=== PATIENT | female | born 1975 | race Caucasian/White ===

== ENCOUNTER 2017-02-10 10:23 | Emergency (ER) | payer MEDICAID ==
[2017-02-10] MEDS ORDERED: Sodium Chloride 0.9% 1,000 ML IV ONE (10:49)
[2017-02-10] MEDS ORDERED: Sodium Chloride 0.9% 1,000 ML ONE (11:18)
[2017-02-10 11:20] LABS: BASO % 0.8 % (0.0-2.0); EOS % 0.6 % (0.0-4.0); HEMATOCRIT 40.6 % (34.0-47.0); LYMPH # 1.5 K/uL (1.0-4.3); LYMPH % 31.1 % (20.0-40.0); MEAN CELL VOLUME 91.4 fL (81.0-99.0); MEAN CORPUSCULAR HEMOGLOBIN 30.6 pg (27.0-31.0); MEAN CORPUSCULAR HGB CONC 33.5 g/dL (33.0-37.0); MEAN PLATELET VOLUME 8.1 fL (7.2-11.7); MONO # 0.4 K/uL (0.0-0.8); RED CELL DISTRIBUTION WIDTH 13.3 % (11.5-14.5); WHITE BLOOD COUNT 4.9 K/uL (4.8-10.8)
[2017-02-10 11:25] LABS: CHLORIDE 102 mmol/L (98-107); SODIUM 145 mmol/L (132-148)
[2017-02-10 11:26] LABS: POTASSIUM 3.3 mmol/L (3.6-5.2)
[2017-02-10 11:28] LABS: ALB/GLOB RATIO 1.4 (1.0-2.1); ALKALINE PHOSPHATASE 44 U/L (38-126); ALT/SGPT 22 U/L (9-52); AST/SGOT 22 U/L (14-36); BILIRUBIN,TOTAL 0.5 mg/dL (0.2-1.3); BLOOD UREA NITROGEN 6 mg/dL (7-17); CARBON DIOXIDE 27 mmol/L (22-30); GFR AFRICAN-AMERICAN > 60; GLUCOSE,RANDOM 86 mg/dL (65-105); TOTAL PROTEIN 8.3 g/dL (6.3-8.3)
[2017-02-10 11:29] LABS: CALCIUM 9.3 mg/dl (8.6-10.4); INR 1.1; URINE BILIRUBIN NEGATIVE (NEGATIVE); URINE BLOOD 2+ (NEGATIVE); URINE COLOR Colorless (YELLOW); URINE GLUCOSE (UA) NORMAL (Normal); URINE KETONE NEGATIVE (NEGATIVE); URINE LEUKOCYTE ESTERASE NEG Leu/uL (Negative); URINE PROTEIN NEGATIVE (NEGATIVE); URINE UROBILINOGEN NORMAL mg/dL (0.2-1.0); WBC URINE < 1 /hpf (0-5)
--- NOTE | 2017-02-10 12:16 | C.PDOC ---
History Of Present Illness 41 y/o female presents to the ED with complaints of spitting up blood, rectal bleeding, weakness and lightheadedness since yesterday. Pt also reports left leg pain and swelling which she states she has had in the past, and it "usually flares up around her menses". Pt denies chest pain, SOB, abdominal pain, nausea, vomiting, diarrhea, dysuria/hematuria. Time Seen by Provider: 02/10/17 10:42 Chief Complaint (Nursing): Abdominal Pain History Per: Patient History/Exam Limitations: no limitations Onset/Duration Of Symptoms: Hrs Current Symptoms Are (Timing): Still Present Severity: Moderate Recent travel outside of the [place]: No Past Medical History Reviewed: Historical Data, Nursing Documentation, Vital Signs Vital Signs: Last Vital Signs Temp 97.9 F 02/10/17 15:34 Pulse 65 02/10/17 15:34 Resp 18 02/10/17 15:34 BP 112/77 02/10/17 15:34 Pulse Ox 100 02/10/17 15:34 - Medical History PMH: Bronchitis - [facility] Procedures MANUAL ASSIST DELIV NEC (10/12/14) Family History: States: No Known Family Hx - Social History Hx Tobacco Use: No Hx Alcohol Use: No Hx Substance Use: No - Immunization History Hx Tetanus Toxoid Vaccination: Yes Hx Influenza Vaccination: No Hx Pneumococcal Vaccination: No Review Of Systems Except As Marked, All Systems Reviewed And Found Negative. Constitutional: Positive for: Weakness. Negative for: Fever Cardiovascular: Negative for: Chest Pain Respiratory: Negative for: Shortness of Breath Gastrointestinal: Positive for: Other (rectal bleeding, spitting up blood). Negative for: Nausea, Vomiting, Abdominal Pain, Diarrhea Genitourinary: Negative for: Dysuria, Hematuria Musculoskeletal: Positive for: Other (left leg pain and swelling) Neurological: Positive for: Other (lightheaded) Physical Exam - Physical Exam Appears: Non-toxic, No Acute Distress, Other (anxious appearing) Skin: Warm, Dry, No Rash Head: Normacephalic Eye(s): bilateral: Normal Inspection Oral Mucosa: Moist Throat: Normal, No Erythema, No Exudate Neck: Normal, Normal ROM Chest: Symmetrical Cardiovascular: Rhythm Regular (tachycardic), No Murmur Respiratory: Normal Breath Sounds, No Rales, No Rhonchi, No Wheezing Gastrointestinal/Abdominal: Bowel Sounds, Soft, Tenderness (diffuse mild tenderness to palpation, greatest in epigastric area), No Guarding, No Rebound Rectal: Rectal Tone (normal), No Hemorrhoids, No Mass, No Tenderness, Other (No gross blood, pink colored stool) Extremity: Normal ROM, Tenderness (diffuse left leg tenderness from thigh and calf), No Deformity, No Swelling, Other (no erythema) Pulses: Left Dorsalis Pedis: Normal, Right Dorsalis Pedis: Normal Neurological/Psych: Oriented x3, Other (bizarre affect) ED Course And Treatment - Laboratory Results Result Diagrams: 02/10/17 11:14 02/10/17 11:14 O2 Sat by Pulse Oximetry: 100 (on room air) Pulse Ox Interpretation: Normal Progress Note: Plan: Blood work, EKG, UA, venous doppler ordered and reviewed. PO Kdur given for mild hypokalemia. Reevaluation Time: 15:15 Reassessment Condition: Improved (Patient reassessed, is resting comfortably, in no current pain/distress. SFOB was (-), patient now admits that she has been drinking a lot of beet juice - likely the cause of pink/red stool. She also now admits that her back pain is chronic, and has been present since she [place] Blood work and venous doppler WNL. Patient well appearing, with normal vitals. On exam, abdomen is soft and nontender. Will discharge home with rx for pain medication, was instructed to follow up with PMD in1 -2 days. She understands she should return to ED if symptoms worsen.) Disposition Counseled Patient/Family Regarding: Studies Performed, Diagnosis, Need For Followup, Rx Given - Disposition Referrals: Natasha Frausto MD [Staff Provider] - Disposition: HOME/ ROUTINE Disposition Time: 15:15 Condition: STABLE Additional Instructions: SEGUIMIENTO CON KOROMA MDICO EN 1-2 VIDAL DEVUELVA A LA MAHOGANY DE EMERGENCIA SI LOS SNTOMAS Prescriptions: Acetaminophen with Codeine [Tylenol with Codeine #3 Tablet] 1 each PO Q6 PRN # 12 tablet PRN Reason: pain Instructions: Chronic Back Pain (ED) Forms: General Discharge Instructions Print Language: BELARUSIAN - POA Present On Arrival: None - Clinical Impression Clinical Impression: Chronic back pain, Hypokalemia, Red stool, Anxiety - Scribe Statement The provider has reviewed the documentation as recorded by the Avelibe Dc Jones Provider Attestation: All medical record entries made by the Avelibe were at my direction and personally dictated by me. I have reviewed the chart and agree that the record accurately reflects my personal performance of the history, physical exam, medical decision making, and the department course for this patient. I have also personally directed, reviewed, and agree with the discharge instructions and disposition.
[2017-02-10] MEDS ORDERED: Potassium Chloride 20 mEq ER Tab PO STA (15:07)
[2017-02-10] MEDS ORDERED: Potassium Chloride 20 mEq/15 ml LIQ UD ONE (15:16)
[2017-02-10 15:22] VITALS: O2SAT 100
[2017-02-10 15:34] VITALS: BP 112/77; PULSE 65; RESP 18; TEMP 97.9
--- NOTE | 2017-02-11 11:47 | CARD ---
APPROVED REPORT EKG Measurement Heart [id number] <Conclusion> Sinus tachycardia Otherwise normal ECG
--- NOTE | 2017-02-11 12:36 | VASCLAB ---
PROCEDURE: Left Lower Extremity Venous Duplex Exam. HISTORY: LEFT LEG PAIN, SWELLING, R/O DVT PRIORS: None. TECHNIQUE: Left common femoral, femoral, popliteal and posterior tibial, peroneal and great saphenous veins were evaluated. Flow was assessed with color Doppler, compressibility, assessment of phasic flow and augmentation response. Report prepared by Amelia Chavez RDCS, RVS FINDINGS: LEFT: 1. Common Femoral Vein: 1.1. Compressibility - Fully compressible: Thrombus - None : Flow - Phasic: Augmentation -Normal: Reflux - None. 2. Femoral Vein: 2.1. Compressibility - Fully compressible: Thrombus - None: Flow - Phasic: Augmentation -Normal: Reflux - None. 3. Popliteal Vein: 3.1. Compressibility - Fully compressible: Thrombus - None: Flow - Phasic: Augmentation -Normal: Reflux - None. 4. Posterior Tibial Vein: 4.1. Compressibility - Fully compressible: Thrombus - None: Flow - Phasic: Augmentation -Normal: Reflux - None. 5. Peroneal Vein: 5.1. Compressibility - Fully compressible: Thrombus - None: Flow - Phasic: Augmentation -Normal: Reflux - None. 6. Great Saphenous Vein: 6.1. Compressibility - Fully compressible: Thrombus - None: Flow - Phasic: Augmentation - Normal: Reflux - None. OTHER FINDINGS: IMPRESSION: No evidence of deep or superficial vein thrombosis of the left lower extremity with excellent venous flow. Normal valve function noted of the left side. Normal venous flow noted in the right common femoral vein.
== END 2017-02-10 15:39 | disposition home or self-care (01) ==
LOC: C.ER 10:23
DX: G89.29 Other chronic pain (principal); M54.9 Dorsalgia, unspecified; E87.6 Hypokalemia; R19.5 Other fecal abnormalities; F41.9 Anxiety disorder, unspecified
CPT/HCPCS: 80053; 80324; 80345; 80346; 80349; 80353; 80358; 80361; 81001; 83992; 84703; 85025; 85610; 85730; 86850; 86900; 93005; 93971; 96360; 99285; G0328; J7040

== ENCOUNTER 2018-12-30 20:22 | Emergency (ER) | payer MEDICAID | END 2018-12-30 21:58 | disposition home or self-care (01) | LOC: C.ER 20:22 ==